=== PATIENT | female | born 1965 | race American Indian/Alaskan Native ===

== ENCOUNTER 2017-10-06 08:05 | Outpatient (CLI) | payer BC ==
--- NOTE | 2017-10-07 10:32 | Mammography Report ---
BILATERAL DIGITAL SCREENING MAMMOGRAM with CAD: 10/06/17 08:05:00 CLINICAL: Routine screening. COMPARISON:None available. FINDINGS: The breasts are heterogeneously dense, which may obscure small masses. Bilateral asymmetries require additional imaging.A few bilateral benign calcifications. No suspicious calcifications. IMPRESSION: Bilateral asymmetries requiring further workup. BI-RADS CATEGORY: 0 -- Additional Imaging Evaluation Required RECOMMENDATION: Recall for bilateral mediolateral , left exaggerated CC and bilateral spot compression views and bilateral breast ultrasound if needed. ACR BI-RADS MAMMOGRAPHIC CODES: 0 = Needs additional imaging evaluation; 1 = Negative; 2 = Benign; 3 = Probably benign; 4 = Suspicious; 5 = Malignant; 6 = Known biopsy-proven malignancy COMMENT: 1. Dense breast tissue, i.e., adenosis, fibrocystic changes, etc., may obscure an underlying neoplasm. 2. Approximately 10% of cancers are not detected with mammography. 3. A negative mammography report should not delay biopsy if a clinically suspicious mass is present. COMMENT: Patient follow-up letters are generated via our [employer] application.
== END 2017-10-06 08:06 | disposition home or self-care (01) ==
LOC: SPVWC 08:05
PROVIDERS: ATTEND Internal Medicine
DX: Z12.31 Encounter for screening mammogram for malignant neoplasm of breast (principal)
CPT/HCPCS: 77067

== ENCOUNTER 2017-11-20 08:35 | Outpatient (CLI) | payer BC ==
--- NOTE | 2017-11-20 09:41 | Mammography Report ---
BILATERAL DIGITAL DIAGNOSTIC MAMMOGRAM and RIGHT BREAST ULTRASOUND: 11/20/17 08:35:00 CLINICAL: Recalled for bilateral asymmetries. COMPARISON:10/06/17 screening FINDINGS: Additional mammographic views of the left breast were performed and are negative.A spot compression right MLO view demonstrates partial effacement of a persistent mild architectural distortion. Ultrasound of the right breast (including all four quadrants and the retroareolar area) was performed and demonstrated benign cysts at 10 o'clock 7 cm from the nipple measuring 3 x 2 x 3 mm and 8 x 2 x 9 mm. A benign cyst at 11 o'clock 4 cm from the nipple measures 3 x 2 x 3 mm. No mass, cyst or shadowing. IMPRESSION: Right benign cysts and negative left breast. BI-RADS CATEGORY: 2 - - Benign RECOMMENDATION: Routine mammographic screening in one year. ACR BI-RADS MAMMOGRAPHIC CODES: 0 = Needs additional imaging evaluation; 1 = Negative; 2 = Benign; 3 = Probably benign; 4 = Suspicious; 5 = Malignant; 6 = Known biopsy-proven malignancy COMMENT: 1. Dense breast tissue, i.e., adenosis, fibrocystic changes, etc., may obscure an underlying neoplasm. 2. Approximately 10% of cancers are not detected with mammography. 3. A negative mammography report should not delay biopsy if a clinically suspicious mass is present. COMMENT: Patient follow-up letters are generated via our [employer] application.
== END 2017-11-20 08:36 | disposition home or self-care (01) ==
LOC: SPVWC 08:35
PROVIDERS: ATTEND Internal Medicine
DX: N60.39 Fibrosclerosis of unspecified breast (principal); N60.01 Solitary cyst of right breast
CPT/HCPCS: 77066